=== PATIENT | male | born 1950 | race Caucasian/White ===

== ENCOUNTER 2021-07-07 20:25 | Emergency (ER) | payer MEDICARE ==
[~2021-07-07] VITALS: Ht 170.2 cm; Wt 77.1 kg
[2021-07-07 20:28] VITALS: BP 193/91
--- NOTE | 2021-07-07 20:29 | NUR ---
PT ALEIDA BUSH, TAKEN TO BED 11
--- NOTE | 2021-07-07 20:30 | NUR ---
BIBA FROM HOME C/O INTERMINTENT SEIZURE ACTIVIITY LASTING TOTAL OF 9 MINS. PT HYPERTENSIVE BUT ASYMPTOMATIC . ADMITS TO DRINKING ALCOHOL DAILY. IS AWAKE FOLLOWS COMMANDS. NO SEIZURE ACTIVITY NOTED AT THIS TIME. SEIZURE PRECAUTIONS IN PLACE. MEDHX- ALCOHOLISM, HTN, CVA, HLYD NKA
--- NOTE | 2021-07-07 21:13 | NUR ---
Dr. Whipple examining patient.
--- NOTE | 2021-07-07 21:17 | NUR ---
X-Ray at bedside.
[2021-07-07] MEDS ORDERED: LORazepam 2 MG/ML VIAL IVP ONE (21:20)
[2021-07-07 21:21] LABS: BASOPHILS # (AUTO) 0.1 K/uL (0.00-0.22); BASOPHILS % (AUTO) 0.6 % (0.0-2.0); EOSINOPHILS # (AUTO) 0.2 K/uL (0-0.4); HEMATOCRIT 41.2 % (36-52); HEMOGLOBIN 14.1 g/dL (12.0-18.0); LYMPHOCYTES % (AUTO) 34.2 % (20.5-51.1); MEAN CORPUSCULAR HEMOGLOBIN 34 pg (27-31); MEAN CORPUSCULAR HGB CONC 34 g/dL (33-37); MEAN CORPUSCULAR VOLUME 98.6 fL (80-94); MONOCYTES # (AUTO) 1.2 K/uL (0.8-1.0); MONOCYTES % (AUTO) 13.7 % (1.7-9.3); NEUTROPHILS # (AUTO) 4.3 K/uL (1.8-7.7); NEUTROPHILS % (AUTO) 49.5 % (42.2-75.2); PLATELET COUNT (AUTO) 104 K/uL (140-450); RED BLOOD CELL COUNT(AUTO) 4.17 MIL/uL (4.20-6.10); WHITE BLOOD COUNT (AUTO) 8.7 K/uL (4.8-10.8)
--- NOTE | 2021-07-07 21:45 | NUR ---
PT RETURNED FROM X RAY VIA [facility] BY RAD. TECH
[2021-07-07 21:53] LABS: ALBUMIN 3.3 g/dL (3.4-5.0); ANION GAP 18.7 (8-16); CARBON DIOXIDE 21.1 mmol/L (21-32); CREATININE 1.7 mg/dL (0.6-1.3); POTASSIUM 3.8 mmol/L (3.5-5.1); TOTAL BILIRUBIN 1.5 mg/dL (0.0-1.0)
--- NOTE | 2021-07-07 22:26 | NUR ---
MAGALIE SWAB OBTAINED AND SENT TO LAB
[2021-07-07] MEDS ORDERED: METO25TE2 PO (22:37)
[2021-07-08] LABS: APPEARANCE,URINE CLEAR (CLEAR); BILIRUBIN,URINE NEGATIVE (NEGATIVE); BLOOD, URINE 1+ (NEGATIVE); COLOR,URINE YELLOW (YELLOW); LEUKOCYTE ESTERASE ,URINE NEGATIVE (NEGATIVE); NITRITE, URINE NEGATIVE (NEGATIVE); UGLUCOSE NEGATIVE (NEGATIVE)
[2021-07-08 00:15] LABS: WBC,URINE 0-5 /HPF (0-5)
[2021-07-08 00:20] LABS: BARBITURATE, URINE NEGATIVE ng/ml (NEG <=200); BENZODIAZEPINE, URINE NEGATIVE ng/mL (NEG <=200); CANNABINOID, URINE POSITIVE ng/mL (NEG <=50); COCAINE, URINE NEGATIVE ng/mL (NEG <=300); OPIATE, URINE NEGATIVE ng/mL (NEG <=2000); PHENCYCLIDINE SCREEN,URINE NEGATIVE ng/mL (NEG <=25)
[2021-07-08] MEDS ORDERED: LABETALOL 100 MG/20 ML VIAL IVP ONE (01:20)
[2021-07-08 02:29] VITALS: BP 179/80
--- NOTE | 2021-07-08 02:35 | NUR ---
REPORT CALLED TO JADE RAMÍREZ AT [facility]
--- NOTE | 2021-07-08 02:57 | NUR ---
[facility] TRANSPORT AT BEDSIDE
--- NOTE | 2021-07-08 03:05 | NUR ---
PT TAKEN BY NAMAN TORRES TO [facility]
--- NOTE | 2021-07-08 03:05 | NUR ---
TRANSFERED VIA [facility]. CHART COPIED AND SENT
== END 2021-07-08 03:05 | disposition short-term general hospital (02) ==
LOC: EDBD 20:25 → MED 20:25
DX: R56.9 Unspecified convulsions (principal); Z20.822 Contact with and (suspected) exposure to COVID-19; F10.239 Alcohol dependence with withdrawal, unspecified; I10 Essential (primary) hypertension; Y90.0 Blood alcohol level of less than 20 mg/100 ml
CPT/HCPCS: 36415; 70450; 71045; 80053; 80305; 81001; 85025; 87426; 93005; 96374; 96375; 99291; G0482; J2060; J3490; Q0092

== ENCOUNTER 2021-07-27 10:45 | Inpatient (IN) | payer MEDICARE ==
[~2021-07-27] VITALS: Ht 154.9 cm; Wt 76.7 kg
[~2021-07-27 10:45] MED LIST: METO25TE2 PO
[2021-07-27 10:51] VITALS: BP 142/78
--- NOTE | 2021-07-27 11:11 | NUR ---
PT AMBULATED TO BED 9
--- NOTE | 2021-07-27 11:30 | NUR ---
Dr. Julian is evaluating patient at bedside
--- NOTE | 2021-07-27 11:40 | NUR ---
RAD at bedside
--- NOTE | 2021-07-27 11:45 | NUR ---
70 Y/O MALE REFERRED BY PCP FOR EVALUATION OF CHF AND BRADYCARDIA. PT DENIES ANY CURRENT PAIN. CURRENT HR IS 55, DENIES ANY PAIN, N/V/D, NO RESPIRATIORY DISTRESS NOTED MEDHX:CHF, HTN ALLERGY: PENICILLIN
--- NOTE | 2021-07-27 12:06 | NUR ---
SWAB HANDED TO JONATHAN
--- NOTE | 2021-07-27 12:38 | NUR ---
PT IS ALERT AND AWAKE, VERBALLY RESPONSIVE, A/OX4
[2021-07-27 12:42] LABS: APPEARANCE,URINE CLEAR (CLEAR); BILIRUBIN,URINE 1+ (NEGATIVE); BLOOD, URINE NEGATIVE (NEGATIVE); COLOR,URINE YELLOW (YELLOW); LEUKOCYTE ESTERASE ,URINE NEGATIVE (NEGATIVE); NITRITE, URINE NEGATIVE (NEGATIVE); UGLUCOSE NEGATIVE (NEGATIVE)
[2021-07-27 12:56] LABS: BASOPHILS # (AUTO) 0.1 K/uL (0.00-0.22); BASOPHILS % (AUTO) 0.8 % (0.0-2.0); EOSINOPHILS # (AUTO) 0.3 K/uL (0-0.4); EOSINOPHILS % (AUTO) 4.2 % (0.0-4.0); HEMATOCRIT 35.8 % (36-52); LYMPHOCYTES # (AUTO) 2.5 K/uL (2.0-11.5); LYMPHOCYTES % (AUTO) 30.2 % (20.5-51.1); MEAN CORPUSCULAR HEMOGLOBIN 34 pg (27-31); MEAN CORPUSCULAR HGB CONC 34 g/dL (33-37); MEAN CORPUSCULAR VOLUME 99.6 fL (80-94); MONOCYTES % (AUTO) 12.6 % (1.7-9.3); NEUTROPHILS # (AUTO) 4.3 K/uL (1.8-7.7); NEUTROPHILS % (AUTO) 52.2 % (42.2-75.2); PLATELET COUNT (AUTO) 144 K/uL (140-450); WHITE BLOOD COUNT (AUTO) 8.3 K/uL (4.8-10.8)
--- NOTE | 2021-07-27 13:00 | NUR ---
DR JOHNSON AT BEDSIDE
[2021-07-27 13:14] LABS: CALCIUM OXALATE CRYSTALS,UR None Seen /HPF (None Seen); COARSE GRANULAR CASTS,URINE None Seen /LPF (None Seen); FINE GRANULAR CASTS,URINE None Seen /LPF (None Seen); HYALINE CASTS, URINE None Seen /LPF (None Seen); OTHER CASTS, URINE None Seen /LPF (None Seen); OTHER CRYSTALS,URINE None Seen /HPF (None Seen); RBC,URINE 0-5 /HPF (0-5); RED BLOOD CELL CASTS,URINE None Seen /LPF (None Seen); TRICHOMONAS,URINE None Seen /HPF (None Seen); TRIPLE PHOSPHATE CRYSTAL,UR None Seen /HPF (None Seen); URIC ACID CRYSTALS,URINE None Seen /HPF (None Seen); URINE AMORPHOUS URATE None Seen /HPF (None Seen); WAXY CASTS,URINE None Seen /LPF (None Seen); WBC,URINE 0-5 /HPF (0-5); YEAST,URINE None Seen /HPF (None Seen)
[2021-07-27 13:40] LABS: ALBUMIN 2.9 g/dL (3.4-5.0); ANION GAP 12.4 (8-16); CARBON DIOXIDE 25.7 mmol/L (21-32); CREATININE 1.4 mg/dL (0.6-1.3); POTASSIUM 4.1 mmol/L (3.5-5.1); TOTAL BILIRUBIN 0.7 mg/dL (0.0-1.0)
[2021-07-27] MEDS ORDERED: MORPHINE SULFATE 4 MG/ML SYR IVP PRN (14:50)
[2021-07-27] MEDS ORDERED: ONDANSETRON 4 MG/2 ML VIAL IVP PRN (14:50)
[2021-07-27] MEDS ORDERED: POTASSIUM CHLORIDE 10 MEQ TABER PO PRN (14:50)
[2021-07-27] MEDS ORDERED: MAGNESIUM OXIDE 400 MG TAB PO PRN (14:50)
[2021-07-27] MEDS ORDERED: ACETAMINOPHEN 325 MG TAB PO PRN (14:50)
[2021-07-27] MEDS ORDERED: HYDROcodone/APAP 5/325 MG 1 TAB TAB PO PRN (14:50)
[2021-07-27] MEDS: FUROSEMIDE 40 MG/4 ML VIAL IVP SCH (15:12)
[2021-07-27] MEDS ORDERED: ASPI-1379 PO (15:20)
--- NOTE | 2021-07-27 15:35 | NUR ---
Patient will be admitted to care of Dr. Briggs. Admited to Telemetry. Will go to room 106B. Belongings list completed. Report to JADE Chester.
--- NOTE | 2021-07-27 15:35 | NUR ---
Note leana in EDM - 07/27/21 at 1551 by KAYLEE Patient will be admitted to care of Dr. Briggs. Admited to Telemetry. Will go to room 106A. Belongings list completed. Report to JADE Chester.
[2021-07-27] MEDS ORDERED: METO25TA PO (15:57)
[2021-07-27] MEDS ORDERED: PANT40EC PO (15:57)
[2021-07-27] MEDS ORDERED: LOSA100T1 PO (15:57)
[2021-07-27] MEDS ORDERED: Folic acid PO (15:57)
[2021-07-27] MEDS ORDERED: ASPI-1822 PO (15:57)
[2021-07-27] MEDS ORDERED: SIMV-30 PO (15:57)
[2021-07-27] MEDS ORDERED: MULT-1301 PO (15:57)
[2021-07-27] MEDS ORDERED: BACL10TA4 PO (15:57)
[2021-07-27 16:00] VITALS: BP 130/64
--- NOTE | 2021-07-27 16:00 | NUR ---
RECEIVED REPORT FROM CHARGE NURSE. PT ARRIVED ONTO UNIT VIA GURNEY, ACCOMPANIED BY ER NURSE. PT ABLE TO AMBULATE FROM GURNEY TO BED. PT IS AWAKE AND ALERT X4 ABLE TO VERBALIZE NEEDS TO STAFF. RESPIRATIONS ARE EVEN AND UNLABORED ON ROOM AIR. NO SIGNS OF DISTRESS NOTED. HR: BRADYCARDIA. ABD IS NONTENDER, NONDISTENDED WITH BOWEL SOUNDS PRESENT. PT IS CONTINENT OF BOWEL AND BLADDER. ABLE TO AMBULATE TO REST ROOM. SKIN IS WARM, DRY, AND INTACT. IV TO R HAND 20G, SL. MRSA SCREEN DONE. VITALS TAKEN. ORIENTED PT TO ROOM, CALL LIGHT, AND HOSPITAL POLICY. ALL SAFETY MEASURES IN PLACE. WILL CONTINUE TO MONITOR.
--- NOTE | 2021-07-27 17:06 | NUR ---
PT AT BEDSIDE. WANTED TO DISCUSS PLAN OF CARE. WENT OVER PLAN OF CARE. ANSWERED ALL QUESTIONS. PT AND VERBALIZED UNDERSTANDING. WILL CONTINUE TO MONITOR.
--- NOTE | 2021-07-27 19:31 | NUR ---
ENDORSED PT TO LEAN MANUFACTURING COORDINATOR NURSE FOR CONTINUITY OF CARE. PT IS STABLE.
--- NOTE | 2021-07-27 19:32 | NUR ---
RECD. RESTING IN BED, AWAKE, A/OX4. RESPIRATION EVEN AND UNLABORED. ABLE TO AMBULATE BY HIMSELF TO THE BR. SALINE LOCK AT THE RIGHT HAND G20, PATENT AND INTACT. DENIES PAIN 0/10.
[2021-07-27 20:00] VITALS: BP 155/57
--- NOTE | 2021-07-27 20:56 | NUR ---
SCHEDULED MEDICATION FOR THE NIGHT ADMINISTERED. HEALTH TEACHING GIVEN ON THE IMPORTANCE OF HEALTHY LIFE STYLE. VERBALIZED UNDERSTANDING.
--- NOTE | 2021-07-27 23:07 | NUR ---
HOME HEALTH CARE RESPIRATORY THERAPIST BOBBIE REPORTED HR GOES DOWN TO 34 BUT WENT BACK TO 40'S AT ONCE. CHECKED PATIENT SLEEPING COMFORTABLY IN BED.
[2021-07-28] VITALS: BP 135/66
--- NOTE | 2021-07-28 02:15 | NUR ---
WAKEN UP TO FIX MONITOR. VERBALIZED HE WAS WORRIED ABOUT HER GRAND DAUGHTER WHO HAD A VEHICULAR ACCIDENT YESTERDAY AND HE WANTS TO GO HOME. ADVISED THAT THERE IS NO ORDER YET FOR HIM TO BE DISCHARGE, WAIT FOR MD TO MAKE ROUNDS IN THE MORNING. AGREED.
[2021-07-28 04:00] VITALS: BP 149/81
--- NOTE | 2021-07-28 04:00 | NUR ---
HR - 70 ON TELE MONITORING, CONTROLLED AFIB.
--- NOTE | 2021-07-28 05:45 | NUR ---
AMBULATING IN THE HALLWAY, ENCOURAGED TO GO BACK TO BED AND SLEEP. EAGER TO HOME, ADVISED TO WAIT FOR MD TO COME DURING THE ROUNDS.
[2021-07-28 07:09] LABS: ANION GAP 12.3 (8-16); BASOPHILS # (AUTO) 0.1 K/uL (0.00-0.22); BASOPHILS % (AUTO) 0.9 % (0.0-2.0); CARBON DIOXIDE 26.5 mmol/L (21-32); CREATININE 1.3 mg/dL (0.6-1.3); EOSINOPHILS # (AUTO) 0.2 K/uL (0-0.4); HEMATOCRIT 35.8 % (36-52); LYMPHOCYTES % (AUTO) 32.1 % (20.5-51.1); MEAN CORPUSCULAR HEMOGLOBIN 33 pg (27-31); MEAN CORPUSCULAR HGB CONC 34 g/dL (33-37); MEAN CORPUSCULAR VOLUME 99.2 fL (80-94); MONOCYTES # (AUTO) 0.6 K/uL (0.8-1.0); MONOCYTES % (AUTO) 9.9 % (1.7-9.3); NEUTROPHILS # (AUTO) 3.2 K/uL (1.8-7.7); NEUTROPHILS % (AUTO) 53.1 % (42.2-75.2); PLATELET COUNT (AUTO) 147 K/uL (140-450); POTASSIUM 3.8 mmol/L (3.5-5.1); RED BLOOD CELL COUNT(AUTO) 3.62 MIL/uL (4.20-6.10); RED CELL DISTRIBUTION WIDTH 13.9 % (11.6-13.7); WHITE BLOOD COUNT (AUTO) 6.1 K/uL (4.8-10.8)
--- NOTE | 2021-07-28 07:20 | NUR ---
ENDORSED TO AM SHIFT NURSE FOR CONTINUITY OF CARE.
--- NOTE | 2021-07-28 07:21 | NUR ---
RECEIVED REPORT FROM HAT FORMING MACHINE FEEDER NURSE FOR CONTINUITY OF CARE. PT AMBULATING AROUND UNIT AT THIS TIME. PT APPEARS ANXIOUS. ORIENTED PT BACK TO ROOM. PT RESPIRATIONS ARE EVEN AND UNLABORED ON ROOM AIR. NO SIGNS OF DISTRESS NOTED. PT IS ALERT, AWAKE AND ABLE TO FOLLOW COMMANDS. PT IS ON CARDIAC DIET, ABD IS NONTENDER, NONDISTENDED WITH BOWEL SOUNDS PRESENT. PT STATES HE HAD BOWEL MOVEMENT LAST NIGHT. PT SKIN IS WARM, DRY, AND INTACT. IV TO R HAND, 20G, SALINE LOCKED. CALL LIGHT WITHIN REACH. ALL SAFETY MEASURES IN PLACE. WILL CONTINUE TO MONITOR.
[2021-07-28 08:00] VITALS: BP 120/75
--- NOTE | 2021-07-28 08:02 | NUR ---
PT STATES HE WANTS TO GO HOME. STATES HE WANTS STAFF TO CALL BECAUSE SHE SAID SHE WAS GOING TO PICK HIM UP. CALLED PT . PT STATES SHE BELIEVES PT IS ANXIOUS BECAUSE HE WANTS TO SMOKE AND CANNOT SMOKE AT THE HOSPITAL. STATES PT HAS ACTED LIKE THIS BEFORE ONCE WHEN HE WAS HOSPITALIZED BEFORE. INFORMED THAT HOSPITAL HAS NO SMOKING POLICY. WILL ASK DR MERCADO FOR NICOTINE PATCH. WILL CONTINUE TO MONITOR.
--- NOTE | 2021-07-28 08:12 | NUR ---
PATIENT HAS BEEN SCREENED AND CATEGORIZED MODERATE NUTRITION RISK. PATIENT WILL BE SEEN WITHIN 3-5 DAYS OF ADMISSION. KRI[address]IE [address] RD
[2021-07-28] MEDS ORDERED: METOPROLOL SUCCINATE 50 MG TABER PO SCH (09:00)
[2021-07-28] MEDS ORDERED: PANTOPRAZOLE 40 MG TABEC PO SCH (09:00)
[2021-07-28] MEDS ORDERED: NICOTINE TRANSD SYS 14 MG/24 HR PATCH TD SCH (09:00)
--- NOTE | 2021-07-28 09:00 | NUR ---
RECEIVED ORDERS FROM DR MERCADO FOR NICOTINE PATCH. WILL CONTINUE TO MONITOR.
--- NOTE | 2021-07-28 09:06 | NUR ---
ADMINISTERED MEDICATIONS. EDUCATED PT ON MEDS ADMINISTERED. PT VERBALIZED UNDERSTANDING. NICOTINE PATCH APPLIED TO MALU. WILL CONTINUE TO MONITOR.
[2021-07-28] MEDS: FUROSEMIDE 40 MG/4 ML VIAL IVP SCH (09:14)
[2021-07-28 12:00] VITALS: BP 144/66
--- NOTE | 2021-07-28 12:48 | NUR ---
DID ROUNDS ON PT. AT BEDSIDE. PT RESTING AT THIS TIME. RESPIRATIONS ARE EVEN AND UNLABORED ON ROOM AIR. NO SIGNS OF DISTRESS NOTED. WILL CONTINUE TO MONITOR.
[2021-07-28] MEDS ORDERED: APIX5TAB PO (13:30)
--- NOTE | 2021-07-28 14:00 | NUR ---
DR MERCADO AT BEDSIDE SPEAKING WITH PT AND FAMILY. INFORMED OF DISCHARGE ORDER. ALL QUESTIONS ANSWERED. WILL CONTINUE TO MONITOR.
[2021-07-28 14:54] VITALS: BP 120/75
--- NOTE | 2021-07-28 15:21 | NUR ---
SPOKE WITH PT REGARDING DISCHARGE PAPERWORK. PT STATES HE WOULD PREFER TO GO OVER DISCHARGE PAPERWORK WITH DAUGHTER WHEN SHE COMES TO [employer]OCIATE PT. WILL GO OVER DISCHARGE PAPERWORK WITH PT AND DAUGHTER WHEN SHE ARRIVES. WILL CONTINUE TO MONITOR.
--- NOTE | 2021-07-28 16:08 | NUR ---
DC PLANNING: THE PATIENT PRESENTED WITH S/S OF ETOH WITHDRAWL, STATES THAT HIS LAST DRINK WAS 2 WEEKS AGO. THE PATIENT IS FOLLOWED BY HOME HEALTH AND THE NURSE NOTICED THAT HE WAS DEMOND AND SENT HIM TO THE ER. PATIENT IN ER WAS IN AFIB, CXR SHOWS CARDIOMEGALY, ADMITTED FOR MANAGEMENT OF CHF AND NEW ONSET AFIB. CARDIOLOGY CONSULT AND ECHO ORDERED. CM SPOKE WITH THE PATIENT AT BEDSIDE AND CONFIRMED HIS ADDRESS AND PHONE NUMBER. HE LIVES WITH HIS SPOUSE IN A SINGLE STORY HOUSE AND HAS HOME HEALTH FOR [employer]. BUT CAN'T REMEMBER THE NAME OF THE AGENCY. HE WALKS INSIDE THE HOUSE BUT IS LIMITED IN HIS ACTIVITY AND USES A FWW TO AMBULATE. HE STATES THAT SOMEONE IS COMING TOMORROW TO GIVE HIM RESOURCES FOR ETOH CESSATION. HE HAS AN APPOINTMENT WITH HIS PCP NEXT WEEK ON July. PATIENT TO DC HOME WHEN CLINICALLY STABLE, [facility] WILL FOLLOW. Addendum: 07/28/21 at 1613 by Leisa Branham CM Amended: Links added.
--- NOTE | 2021-07-28 16:35 | NUR ---
WENT OVER DISCHARGE PAPERWORK WITH PT AND PT DAUGHTER. ANSWERED ALL QUESTIONS. PT SIGNED ALL PAPERWORK. REMOVED IV. IV CATHETER INTACT. ALL BELONGINGS TAKEN UPON DISCHARGE. PT DISCHARGED HOME WITH FAMILY.
== END 2021-07-28 16:35 | disposition home or self-care (01) | DRG 291 ==
LOC: MED 10:45 → MTU 14:52
PROVIDERS: ADMIT Student in an Organized Health Care Education/Training Program; ATTEND Student in an Organized Health Care Education/Training Program
DX: I11.0 Hypertensive heart disease with heart failure (principal); I50.33 Acute on chronic diastolic (congestive) heart failure; E41 Nutritional marasmus; E44.1 Mild protein-calorie malnutrition; I48.91 Unspecified atrial fibrillation; Z20.822 Contact with and (suspected) exposure to COVID-19; F10.10 Alcohol abuse, uncomplicated; F17.210 Nicotine dependence, cigarettes, uncomplicated; E11.9 Type 2 diabetes mellitus without complications; E78.5 Hyperlipidemia, unspecified; E66.9 Obesity, unspecified; Z68.31 Body mass index [BMI] 31.0-31.9, adult; Z79.01 Long term (current) use of anticoagulants; Z88.0 Allergy status to penicillin; Z79.899 Other long term (current) drug therapy; Z71.41 Alcohol abuse counseling and surveillance of alcoholic
CPT/HCPCS: 36415; 71045; 80048; 80053; 81001; 83880; 84443; 84484; 85025; 85610; 85730; 93005; 99285; J1644; J1940